=== PATIENT | male | born 2000 | race Caucasian/White ===

== ENCOUNTER 2023-09-24 19:18 | Emergency (ER) | payer OTHER ==
[~2023-09-24] VITALS: Ht 177.8 cm; Wt 76.9 kg
[2023-09-24 19:19] VITALS: BP 137/76; TEMP 97.8; O2SAT 98
[2023-09-24] MEDS ORDERED: CLOB0.0526 TOP (20:30)
[2023-09-24] MEDS: CLOBETASOL PROP 0.05% OINT 30 GM TOP ONE (20:43)
== END 2023-09-24 22:55 | disposition home or self-care (01) ==
LOC: M ED 19:18
DX: L23.7 Allergic contact dermatitis due to plants, except food (principal); Z79.2 Long term (current) use of antibiotics

== ENCOUNTER 2023-12-14 09:49 | Emergency (ER) | payer OTHER ==
[~2023-12-14] VITALS: Ht 172.7 cm; Wt 77.3 kg
[~2023-12-14 09:49] MED LIST: CLOB0.0526 TOP
[2023-12-14 12:04] LABS: BASO # 0.1 10^3/uL (0.0-0.2); BASO % 0.7 % (0.0-1.0); EOS # 0.2 10^3/uL (0.0-0.5); EOS % 1.5 % (0.0-3.0); HEMATOCRIT 46.9 % (42.0-52.0); HEMOGLOBIN 16.3 g/dl (13.5-17.5); LYMPH # 2.8 10^3/uL (1.5-5.0); LYMPH % 27.8 % (24.0-44.0); MEAN CORPUSCULAR HEMOGLOBIN 29.9 pg (27.0-33.0); MEAN CORPUSCULAR HGB CONC 34.8 g/dl (32.0-36.5); MEAN CORPUSCULAR VOLUME 85.9 fl (80.0-96.0); MONO # 0.8 10^3/uL (0.0-0.8); MONO % 8.3 % (2.0-8.0); NEUTROPHILS # 6.2 10^3/uL (1.5-8.5); NEUTROPHILS % 61.4 % (36.0-66.0); PLATELET COUNT, AUTOMATED 323 10^3/uL (150-450); RED BLOOD COUNT 5.46 10^6/uL (4.30-6.10)
[2023-12-14 12:30] LABS: BLOOD UREA NITROGEN 27 MG/DL (9-23); CALCIUM LEVEL 9.9 MG/DL (8.5-10.1); CARBON DIOXIDE LEVEL 28 MMOL/L (20-31); CHLORIDE LEVEL 106 MMOL/L (98-107); CREATININE FOR GFR 0.83 MG/DL (0.70-1.30); GLOMERULAR FILTRATION RATE > 60.0 (>60); GLUCOSE, FASTING 84 MG/DL (60-100); POTASSIUM SERUM 4.4 MMOL/L (3.5-5.1); SODIUM LEVEL 138 MMOL/L (136-145)
[2023-12-14] MEDS ORDERED: PROC1CRE5 PR (12:37)
[2023-12-14] MEDS ORDERED: COLA100C5 PO (12:37)
[2023-12-14 12:46] VITALS: BP 139/86; TEMP 98.2; O2SAT 99
== END 2023-12-14 12:43 | disposition home or self-care (01) ==
LOC: M ED 09:49
DX: K64.8 Other hemorrhoids (principal); F10.10 Alcohol abuse, uncomplicated; Z79.899 Other long term (current) drug therapy

== ENCOUNTER 2024-01-18 08:01 | Emergency (ER) | payer OTHER ==
[~2024-01-18] VITALS: Ht 177.8 cm; Wt 76.5 kg
[~2024-01-18 08:01] MED LIST changes: +COLA100C5 PO; +PROC1CRE5 PR
[2024-01-18 11:07] VITALS: BP 138/90; TEMP 97.2; O2SAT 100
[2024-01-18] MEDS ORDERED: LOTR1CRE12 TOP (11:22)
== END 2024-01-18 11:28 | disposition home or self-care (01) ==
LOC: M ED 08:01
DX: B35.4 Tinea corporis (principal); Z91.040 Latex allergy status; Z79.2 Long term (current) use of antibiotics

== ENCOUNTER 2024-03-15 12:17 | Emergency (ER) | payer OTHER ==
[~2024-03-15] VITALS: Ht 177.8 cm; Wt 79.4 kg
[~2024-03-15 12:17] MED LIST changes: +LOTR1CRE12 TOP
[2024-03-15] MEDS: KETOROLAC 30 MG/ML 1ML VIAL IM ONE (14:30)
[2024-03-15] MEDS ORDERED: ONDA-282 PO (15:21)
[2024-03-15] MEDS ORDERED: KETO10TAB PO (15:21)
[2024-03-15 15:44] VITALS: BP 132/62; TEMP 97.9; O2SAT 100
== END 2024-03-15 15:46 | disposition home or self-care (01) ==
LOC: M ED 12:17
DX: G43.909 Migraine, unspecified, not intractable, without status migrainosus (principal); Z91.040 Latex allergy status; Z79.2 Long term (current) use of antibiotics; Z79.899 Other long term (current) drug therapy
CPT/HCPCS: 70450; 96372; 99283; J1885

== ENCOUNTER 2024-03-21 13:26 | Emergency (ER) | payer OTHER ==
[~2024-03-21] VITALS: Ht 177.8 cm; Wt 81.0 kg
[~2024-03-21 13:26] MED LIST changes: +KETO10TAB PO; +ONDA-282 PO
[2024-03-21 14:14] LABS: BASO # 0.1 10^3/uL (0.0-0.2); BASO % 1.3 % (0.0-1.0); EOS # 0.2 10^3/uL (0.0-0.5); EOS % 2.4 % (0.0-3.0); HEMOGLOBIN 15.8 g/dl (13.5-17.5); LYMPH # 2.6 10^3/uL (1.5-5.0); LYMPH % 34.5 % (24.0-44.0); MEAN CORPUSCULAR HEMOGLOBIN 30.2 pg (27.0-33.0); MEAN CORPUSCULAR HGB CONC 35.1 g/dl (32.0-36.5); MONO # 0.7 10^3/uL (0.0-0.8); MONO % 8.9 % (2.0-8.0); NEUTROPHILS % 52.6 % (36.0-66.0); PLATELET COUNT, AUTOMATED 264 10^3/uL (150-450); RED BLOOD COUNT 5.23 10^6/uL (4.30-6.10); WHITE BLOOD COUNT 7.6 10^3/uL (4.0-10.0)
[2024-03-21] MEDS ORDERED: ANUS25SU PR (16:47)
[2024-03-21 17:05] VITALS: BP 136/83; TEMP 98.3; O2SAT 98
== END 2024-03-21 17:09 | disposition home or self-care (01) ==
LOC: M ED 13:26
DX: K64.8 Other hemorrhoids (principal); Z91.040 Latex allergy status; Z91.013 Allergy to seafood; Z79.899 Other long term (current) drug therapy

== ENCOUNTER 2024-06-01 09:21 | Emergency (ER) | payer OTHER ==
[~2024-06-01] VITALS: Ht 177.8 cm; Wt 81.7 kg
[~2024-06-01 09:21] MED LIST changes: +ANUS25SU PR
[2024-06-01 15:29] VITALS: BP 144/79; TEMP 100.6; O2SAT 99
[2024-06-01] MEDS ORDERED: BREAMIS10 MC (17:55)
[2024-06-01] MEDS ORDERED: BENZ200C70 PO (17:55)
[2024-06-01] MEDS ORDERED: VENTAER INH (17:55)
== END 2024-06-01 09:46 | disposition left against medical advice (07) ==
LOC: M ED 09:21
DX: Z53.21 Procedure and treatment not carried out due to patient leaving prior to being seen by health care provider (principal)

== ENCOUNTER → 2024-06-12 | Outpatient (REF) ==
[~2024-06-12] MED LIST changes: +BENZ200C70 PO; +BREAMIS10 MC; +VENTAER INH
== END ==
LOC: M PLAIMG 11:01
PROVIDERS: ATTEND Internal Medicine
DX: R06.02 Shortness of breath (principal)

== ENCOUNTER 2024-06-22 13:50 | Emergency (ER) | payer OTHER ==
[~2024-06-22] VITALS: Ht 177.8 cm; Wt 82.5 kg
[2024-06-22 13:52] VITALS: TEMP 97.5
[2024-06-22] MEDS: ONDANSETRON 4MG 2ML VIAL IV ONE (19:10)
[2024-06-22] MEDS: NS (Normal Saline) 0.9% 1,000 ML IV ONE (19:10)
[2024-06-22] MEDS: ACETAMINOPHEN *IV* 1,000 MG in IV 1 EA IV ONE (19:10)
[2024-06-22 19:48] LABS: BASO % 0.3 % (0.0-1.0); EOS % 0.5 % (0.0-3.0); HEMOGLOBIN 15.5 g/dl (13.5-17.5); LYMPH # 2.4 10^3/uL (1.5-5.0); LYMPH % 36.4 % (24.0-44.0); MEAN CORPUSCULAR HEMOGLOBIN 30.3 pg (27.0-33.0); MEAN CORPUSCULAR HGB CONC 35.2 g/dl (32.0-36.5); MEAN CORPUSCULAR VOLUME 86.1 fl (80.0-96.0); MONO % 14.8 % (2.0-8.0); NEUTROPHILS # 3.1 10^3/uL (1.5-8.5); NEUTROPHILS % 47.8 % (36.0-66.0); PLATELET COUNT, AUTOMATED 243 10^3/uL (150-450); RED BLOOD COUNT 5.11 10^6/uL (4.30-6.10); WHITE BLOOD COUNT 6.6 10^3/uL (4.0-10.0)
[2024-06-22 20:26] VITALS: BP 137/64; O2SAT 97
[2024-06-22 21:40] LABS: LIPASE 26 U/L (12-53)
[2024-06-22 21:43] LABS: ALBUMIN 3.4 G/DL (3.2-5.2); ALKALINE PHOSPHATASE 55 U/L (40-129); ALT/SGPT 23 U/L (7.0-40); AST/SGOT 21 U/L (<34); BILIRUBIN,DIRECT 0.2 MG/DL (<0.4); BILIRUBIN,TOTAL 0.5 MG/DL (0.3-1.2); BLOOD UREA NITROGEN 12 MG/DL (9-23); CALCIUM LEVEL 8.5 MG/DL (8.5-10.1); CARBON DIOXIDE LEVEL 25 MMOL/L (20-31); CHLORIDE LEVEL 106 MMOL/L (98-107); CREATININE FOR GFR 0.77 MG/DL (0.70-1.30); GLOMERULAR FILTRATION RATE > 60.0 (>60); GLUCOSE, FASTING 86 MG/DL (60-100); POTASSIUM SERUM 3.8 MMOL/L (3.5-5.1); SODIUM LEVEL 143 MMOL/L (136-145); TOTAL PROTEIN 6.5 G/DL (5.7-8.2)
[2024-06-22 21:47] LABS: LIPASE 29 U/L (12-53)
[2024-06-22 21:50] LABS: ALKALINE PHOSPHATASE 65 U/L (40-129); ALT/SGPT 27 U/L (7.0-40); AST/SGOT 26 U/L (<34); BILIRUBIN,DIRECT 0.2 MG/DL (<0.4); BILIRUBIN,TOTAL 0.6 MG/DL (0.3-1.2); BLOOD UREA NITROGEN 13 MG/DL (9-23); CALCIUM LEVEL 9.5 MG/DL (8.5-10.1); CARBON DIOXIDE LEVEL 27 MMOL/L (20-31); CHLORIDE LEVEL 103 MMOL/L (98-107); CREATININE FOR GFR 0.85 MG/DL (0.70-1.30); GLOMERULAR FILTRATION RATE > 60.0 (>60); GLUCOSE, FASTING 79 MG/DL (60-100); SODIUM LEVEL 142 MMOL/L (136-145); TOTAL PROTEIN 7.5 G/DL (5.7-8.2)
== END 2024-06-22 21:56 | disposition home or self-care (01) ==
LOC: M ED 13:50
DX: A09 Infectious gastroenteritis and colitis, unspecified (principal); Z91.040 Latex allergy status; Z91.013 Allergy to seafood; Z91.018 Allergy to other foods
CPT/HCPCS: 36415; 80048; 80076; 83690; 85025; 87486; 87581; 87633; 87798; 96365; 96366; 96375; 99284; J0131; J2405